=== PATIENT | female | born 1990 | race Caucasian/White ===

== ENCOUNTER 2016-06-16 09:42 | Emergency (ER) | payer OTHER ==
[~2016-06-16] VITALS: Ht 157.5 cm; Wt 59.1 kg
[2016-06-16 09:43] VITALS: BP 113/61; PULSE 70; RESP 15; TEMP 97.7; O2SAT 97
--- NOTE | 2016-06-16 10:35 | PD ---
HPI Chief Complaint: Related Problem Time Seen by Provider: 10:07 Travel History International Travel<30 days: No Contact w/Intl Traveler<30days: No Traveled to known affect area: No History of Present Illness HPI The patient is a 25-year-old female who is , last menstrual cycle was April 07, who thought she was approximately 10 weeks . The patient had several home tests that were positive and one positive test at her physician's office. The patient states she developed some lower abdominal cramping on Wednesday that was followed by some vaginal bleeding. The patient then passed tissue last night with severe abdominal cramping, thinks she had a miscarriage last night. The patient thinks she passed some tissue last night with her abdominal cramping and vaginal bleeding. She now notes her vaginal bleeding has lessened, is light red with some mucus. She denies any current abdominal pain, however, does state her blood type is Rh-. Patient's symptoms are moderate, have improved after possible miscarriage, she was advised by her primary physician to come to the emergency department for further evaluation. PFSH Past Medical History Medical other: Yes (HYPOGLYCEMIA ) Tetanus Vaccination: Unknown Influenza Vaccination: No (UNKNOWN ) ?: Unknown LMP: 04/12/16 : 2 Para: 0 : 1 Past Surgical History Appendectomy: Yes Social History Alcohol Use: No Tobacco Use: No Substance Use: No Allergies-Medications (Allergen,Severity, Reaction): Coded Allergies: No Known Allergies (Unverified , 06/16/16) Reported Meds & Prescriptions Reported Meds & Active Scripts Active No Active Prescriptions or Reported Medications Review of Systems Except as stated in HPI: all other systems reviewed are Neg General / Constitutional: No: Fever Cardiovascular: No: Chest Pain or Discomfort Respiratory: No: Shortness of Breath Gastrointestinal: No: Nausea, Vomiting, Abdominal Pain Genitourinary: Positive: Vaginal Bleeding, Other Physical Exam Narrative GENERAL: Awake, alert, nontoxic-appearing 25-year-old female who appears her stated age and is in no acute respiratory distress. SKIN: Warm and dry. HEAD: Atraumatic. Normocephalic. EYES: No injection or drainage. ENT: No nasal bleeding or discharge. Mucous membranes pink and moist. NECK: Trachea midline. No JVD. GASTROINTESTINAL: Abdomen soft, non-tender, nondistended. No rebound tenderness , guarding, rigidity. Pelvic: The exam was performed in the presence of a female nurse, Magali. External examination reveals no rashes or lesions. Speculum examination reveals scant blood in the vaginal vault. Cervix is closed, minimal blood at the cervical os. MUSCULOSKELETAL: No obvious deformities. No clubbing. No cyanosis. No edema. NEUROLOGICAL: Awake and alert. No obvious cranial nerve deficits. Motor grossly within normal limits. Normal speech. PSYCHIATRIC: Appropriate mood and affect; insight and judgment normal. Data Data Last Documented VS Vital Signs Date Time Temp Pulse Resp B/P Pulse Ox O2 Delivery O2 Flow Rate FiO2 06/16/16 12:30 64 16 92/51 100 Room Air 06/16/16 09:43 97.7 Orders Beta Hcg (Quant/Titer) (06/16/16 10:25) Complete Blood Count With Diff (06/16/16 10:25) Basic Metabolic Panel (Bmp) (06/16/16 10:25) Complete Rh (06/16/16 10:25) Urinalysis - C+S If Indicated (06/16/16 10:25) Rhogam Only (06/16/16 11:16) Us Pelvis Preg(Sgl/1st Gestat) (06/16/16 ) Labs Laboratory Tests Test 06/16/16 06/16/16 06/16/16 10:17 10:40 11:16 Urine Color LIGHT-YELLOW Urine Turbidity CLEAR Urine pH 5.0 Urine Specific [place] 1.004 Urine Protein NEG mg/dL Urine Glucose (UA) NEG mg/dL Urine Ketones NEG mg/dL Urine Occult Blood MOD Urine Nitrite NEG Urine Bilirubin NEG Urine Urobilinogen LESS THAN 2.0 MG/DL Urine Leukocyte Esterase NEG Urine RBC LESS THAN 1 /hpf Urine WBC 1 /hpf Urine Squamous Epithelial 1 /hpf Cells Urine Bacteria RARE /hpf Microscopic Urinalysis Comment CULT NOT INDICATED White Blood Count 5.7 TH/MM3 Red Blood Count 4.91 MIL/MM3 Hemoglobin 14.9 GM/DL Hematocrit 44.1 % Mean Corpuscular Volume 89.9 FL Mean Corpuscular Hemoglobin 30.4 PG Mean Corpuscular Hemoglobin 33.7 % Concent Red Cell Distribution Width 13.3 % Platelet Count 165 TH/MM3 Mean Platelet Volume 10.7 FL Neutrophils (%) (Auto) 61.1 % Lymphocytes (%) (Auto) 30.7 % Monocytes (%) (Auto) 6.9 % Eosinophils (%) (Auto) 0.8 % Basophils (%) (Auto) 0.5 % Neutrophils # (Auto) 3.5 TH/MM3 Lymphocytes # (Auto) 1.7 TH/MM3 Monocytes # (Auto) 0.4 TH/MM3 Eosinophils # (Auto) 0.0 TH/MM3 Basophils # (Auto) 0.0 TH/MM3 CBC Comment DIFF FINAL Differential Comment Sodium Level 139 MEQ/L Potassium Level 3.9 MEQ/L Chloride Level 103 MEQ/L Carbon Dioxide Level 28.7 MEQ/L Anion Gap 7 MEQ/L Blood Urea Nitrogen 10 MG/DL Creatinine 0.74 MG/DL Estimat Glomerular Filtration 96 ML/MIN Rate Random Glucose 91 MG/DL Calcium Level 9.1 MG/DL Human Chorionic Gonadotropin, 1012 MIU/ML Quant Blood Type A NEGATIVE Rho(D) Type NEGATIVE Blood Bank Comment MDM Medical Decision Making Medical Screen Exam Complete: Yes Emergency Medical Condition: Yes Medical Record Reviewed: Yes Interpretation(s) Laboratory Tests Test 06/16/16 06/16/16 06/16/16 10:17 10:40 11:16 Urine Color LIGHT-YELLOW Urine Turbidity CLEAR Urine pH 5.0 Urine Specific [place] 1.004 Urine Protein NEG mg/dL Urine Glucose (UA) NEG mg/dL Urine Ketones NEG mg/dL Urine Occult Blood MOD Urine Nitrite NEG Urine Bilirubin NEG Urine Urobilinogen LESS THAN 2.0 MG/DL Urine Leukocyte Esterase NEG Urine RBC LESS THAN 1 /hpf Urine WBC 1 /hpf Urine Squamous Epithelial 1 /hpf Cells Urine Bacteria RARE /hpf Microscopic Urinalysis Comment CULT NOT INDICATED White Blood Count 5.7 TH/MM3 Red Blood Count 4.91 MIL/MM3 Hemoglobin 14.9 GM/DL Hematocrit 44.1 % Mean Corpuscular Volume 89.9 FL Mean Corpuscular Hemoglobin 30.4 PG Mean Corpuscular Hemoglobin 33.7 % Concent Red Cell Distribution Width 13.3 % Platelet Count 165 TH/MM3 Mean Platelet Volume 10.7 FL Neutrophils (%) (Auto) 61.1 % Lymphocytes (%) (Auto) 30.7 % Monocytes (%) (Auto) 6.9 % Eosinophils (%) (Auto) 0.8 % Basophils (%) (Auto) 0.5 % Neutrophils # (Auto) 3.5 TH/MM3 Lymphocytes # (Auto) 1.7 TH/MM3 Monocytes # (Auto) 0.4 TH/MM3 Eosinophils # (Auto) 0.0 TH/MM3 Basophils # (Auto) 0.0 TH/MM3 CBC Comment DIFF FINAL Differential Comment Sodium Level 139 MEQ/L Potassium Level 3.9 MEQ/L Chloride Level 103 MEQ/L Carbon Dioxide Level 28.7 MEQ/L Anion Gap 7 MEQ/L Blood Urea Nitrogen 10 MG/DL Creatinine 0.74 MG/DL Estimat Glomerular Filtration 96 ML/MIN Rate Random Glucose 91 MG/DL Calcium Level 9.1 MG/DL Human Chorionic Gonadotropin, 1012 MIU/ML Quant Blood Type A NEGATIVE Rho(D) Type NEGATIVE Blood Bank Comment Ultrasound of the pelvis reveals uterus appears normal. No gestational sac or material seen within the endometrial cavity. Differential Diagnosis Differential diagnosis includes incomplete , incomplete , threatened AB, . Narrative Course Bedside UA test was negative. Therefore, quantitative beta hCG was sent to lab. As patient recently had a miscarriage, most likely her beta-hCG was sterilely positive. However, patient states she was and is Rh-, therefore, Rh status was sent to lab. Ultrasound reveals a normal uterus with no gestational sac or material seen within the endometrial cavity. The patient is a negative, therefore, was administered RhoGAM. Pelvic exam was performed. The patient appears to have a completed . The patient will be provided a copy of her labs and ultrasound at discharge. She will need follow-up beta hCG and one week with her physician to ensure resolution. The patient is stable for outpatient follow-up. Diagnosis Primary Impression: Complete Patient Instructions: General Instructions Additional Instructions: Please provide the patient a copy of her ultrasound results and lab results at discharge. Follow-up with her human service worker in 1 week for repeat beta hCG to ensure resolution. Tylenol and/or Motrin as needed for pain. Return for fever or progressing symptoms. No sex until cleared by primary physician. Med/Other Pt SpecificInfo: No Change to Meds Scripts No Active Prescriptions or Reported Meds Disposition: 01 DISCHARGE HOME Condition: Stable Scooter Evans MD Jun 16, 2016 10:35
[2016-06-16 10:53] LABS: AUTOMATED NEUTROPHIL # 3.5 TH/MM3 (1.8-7.7); BASOPHIL % 0.5 % (0.0-2.0); EOSINOPHIL % 0.8 % (0.0-4.0); HEMATOCRIT 44.1 % (35.0-46.0); HEMO FLAGS DIFF FINAL; LYMPH % 30.7 % (9.0-44.0); LYMPHOCYTE # 1.7 TH/MM3 (1.0-4.8); MEAN CELL VOLUME 89.9 FL (80.0-100.0); MEAN CORPUSCULAR HEMOGLOBIN 30.4 PG (27.0-34.0); MEAN CORPUSCULAR HGB CONC 33.7 % (32.0-36.0); MONO % 6.9 % (0.0-8.0); NEUT % 61.1 % (16.0-70.0); PLATELET COUNT 165 TH/MM3 (150-450); RED BLOOD COUNT 4.91 MIL/MM3 (4.00-5.30); RED CELL DISTRIBUTION WIDTH 13.3 % (11.6-17.2); WHITE BLOOD COUNT 5.7 TH/MM3 (4.0-11.0)
[2016-06-16 11:06] LABS: BACTERIA, URINE RARE /hpf; BLOOD, URINE MOD (NEG); GLUCOSE,URINE NEG (NEG); KETONE, URINE NEG (NEG); NITRITE,URINE NEG (NEG); SQUAMOUS EPITHELIAL CELL URINE 1 /hpf (0-5); URINE COLOR LIGHT-YELLOW (YELLW/STRAW)
[2016-06-16 11:07] LABS: COMMENT (UR) CULT NOT INDICATED; CULTURE IF INDICATED CULT NOT INDICATED
[2016-06-16 11:14] LABS: BICARBONATE 28.7 MEQ/L (21.0-32.0); POTASSIUM 3.9 MEQ/L (3.5-5.1)
[2016-06-16 12:30] VITALS: BP 92/51; PULSE 64; RESP 16; O2SAT 100
--- NOTE | 2016-06-16 13:09 | RADRPT ---
EXAM DATE/TIME: 06/16/2016 12:24 [facility] COMPARISON: No previous studies available for comparison. INDICATIONS : Bleeding. LAB(S): Beta-hC,012 MEDICAL HISTORY : Hypoglycemia. Spontaneous . SURGICAL HISTORY : Appendectomy. ENCOUNTER: Initial ACUITY: 1 day PAIN SCORE: 0/10 LOCATION: Bilateral pelvis MEASUREMENTS: UTERUS: 10.6 x 3.8 x 5.4 cm ENDOMETRIAL STRIPE: 8 mm RIGHT OVARY: 2.4 x 1.2 x 2.0 cm LEFT OVARY: 2.9 x 1.7 x 1.5 cm FINDINGS: UTERUS: The myometrium has homogeneous echotexture without mass. RIGHT OVARY: Ovary contains no mass or significant cystic lesion. LEFT OVARY: Ovary contains no mass or significant cystic lesion. MISCELLANEOUS: No free fluid. CONCLUSION: Uterus appears normal. The gestational sac or material seen within the endometrial cavity. Dutch Shipley MD on June 16, 2016 at 13:00 Board Certified Radiologist. This report was verified electronically.
== END 2016-06-16 14:27 | disposition home or self-care (01) ==
LOC: NEPC 09:42
DX: O03.9 Complete or unspecified spontaneous abortion without complication (principal)
CPT/HCPCS: 76801; 80048; 81001; 84702; 85025; 86901; 90384; 96372; J2790